=== PATIENT | male | born 1965 | race Caucasian/White ===

== ENCOUNTER 2021-03-27 15:26 | Inpatient (IN) | payer OTHER ==
[2021-03-27 18:06] VITALS: BMI 25.0
[2021-03-27] MEDS ORDERED: MAG HYDROX/AL HYDROX/SIMETH 30 ML UNIT-DOSE CUP PO PRN (19:40)
[2021-03-27] MEDS ORDERED: ONDANSETRON *ODT* 4 MG TABLET SL PRN (19:40)
[2021-03-27] MEDS ORDERED: diazePAM 5 MG TABLET PO ONE (19:40)
[2021-03-27] MEDS ORDERED: MAGNESIUM HYDROX 2400MG/30ML ORAL SUSPENSION 30 ML CUP PO PRN (19:40)
[2021-03-27] MEDS ORDERED: BISMUTH SUBSALICYLATE 524 MG/30 ML PO PRN (19:40)
[2021-03-27] MEDS ORDERED: ACETAMINOPHEN 325 MG TABLET (FP) PO PRN ×2 (19:40)
[2021-03-27] MEDS ORDERED: MAGNESIUM CITRATE 300 ML BOTTLE PO PRN (19:40)
[2021-03-27] MEDS ORDERED: MENTHOL/PHENOL 1 EACH UD MM PRN (19:40)
[2021-03-27] MEDS ORDERED: NICOTINE POLACRILEX 2 MG GUM BUC PRN (19:40)
[2021-03-27] MEDS ORDERED: MELATONIN 5 MG TABLETS PO SCH (22:00)
[2021-03-27] MEDS: diazePAM 5 MG TABLET PO SCH (22:01)
[2021-03-27] MEDS: hydrOXYzine PAMOATE 25 MG CAPSULE (FP) PO SCH (22:01)
[2021-03-27] MEDS: THIAMINE HCL 100 MG TABLET (FP) PO SCH (22:01)
[2021-03-27] MEDS: METHOCARBAMOL 500 MG TABLET PO PRN (22:01)
[2021-03-27] MEDS: PRENATAL VITAMINS W/ FOLIC ACID TABLET (FP) PO SCH (22:02)
[2021-03-27] MEDS: NICOTINE 21 MG/24 HOURS TOPICAL PATCH TD SCH (22:04)
[2021-03-28] MEDS: hydrOXYzine PAMOATE 25 MG CAPSULE (FP) PO SCH ×3 (05:30→14:45)
[2021-03-28] MEDS: diazePAM 5 MG TABLET PO SCH ×4 (05:31→22:12)
[2021-03-28] MEDS: PRENATAL VITAMINS W/ FOLIC ACID TABLET (FP) PO SCH (10:35)
[2021-03-28] MEDS: diazePAM 5 MG TABLET PO ONE (10:36)
[2021-03-28] MEDS: NICOTINE 21 MG/24 HOURS TOPICAL PATCH TD SCH (10:47)
[2021-03-28 11:08] LABS: HEMATOCRIT 41.8 % (35.4-49); HEMOGLOBIN 14.1 GM/dL (11.7-16.9); MCH 35.6 pg (25.7-33.7); MCHC 33.7 g/dl (32.0-35.9); MEAN CELL VOLUME 105.6 fl (80-96); MEAN PLT VOLUME 9.5 fl (7.5-11.1); PLATELET COUNT 160 10^3/uL (134-434); RBC 3.96 M/mm3 (4.00-5.60); RDW 14.4 % (11.9-15.9); WHITE BLOOD COUNT 4.9 K/mm3 (4.0-10.0)
[2021-03-28 11:17] LABS: ALBUMIN 3.1 g/dl (3.4-5.0)
[2021-03-28 11:18] LABS: BLOOD UREA NITROGEN 8.5 mg/dL (7-18); CALCIUM 8.6 mg/dL (8.5-10.1)
[2021-03-28 11:21] LABS: CREATININE 0.7 mg/dL (0.55-1.3)
[2021-03-28 11:22] LABS: TOT PROT 6.2 g/dl (6.4-8.2)
[2021-03-28] MEDS: hydrOXYzine PAMOATE 25 MG CAPSULE (FP) PO PRN (17:36)
[2021-03-28] MEDS: THIAMINE HCL 100 MG TABLET (FP) PO SCH (22:12)
[2021-03-28] MEDS: SUVOREXANT 5 MG TABLET PO PRN (22:13)
[2021-03-29] MEDS: diazePAM 5 MG TABLET PO SCH ×3 (05:31→22:16)
[2021-03-29] MEDS: hydrOXYzine PAMOATE 25 MG CAPSULE (FP) PO PRN (10:43)
[2021-03-29] MEDS: NICOTINE 21 MG/24 HOURS TOPICAL PATCH TD SCH (10:43)
[2021-03-29] MEDS: PRENATAL VITAMINS W/ FOLIC ACID TABLET (FP) PO SCH (10:43)
[2021-03-29] MEDS: diazePAM 5 MG TABLET PO PRN (10:46)
[2021-03-29 11:25] LABS: CALCIUM 8.3 mg/dL (8.5-10.1)
[2021-03-29 11:26] LABS: ALBUMIN 2.8 g/dl (3.4-5.0); BLOOD UREA NITROGEN 8.9 mg/dL (7-18)
[2021-03-29 11:29] LABS: CREATININE 0.6 mg/dL (0.55-1.3)
[2021-03-29 11:31] LABS: BILIRUBIN,TOTAL 1.6 mg/dL (0.2-1); TOT PROT 5.8 g/dl (6.4-8.2)
[2021-03-29] MEDS: THIAMINE HCL 100 MG TABLET (FP) PO SCH (22:16)
[2021-03-29] MEDS: SUVOREXANT 5 MG TABLET PO PRN (22:17)
[2021-03-30] MEDS: diazePAM 5 MG TABLET PO SCH ×2 (05:52→17:41)
[2021-03-30] MEDS: NICOTINE 21 MG/24 HOURS TOPICAL PATCH TD SCH (10:20)
[2021-03-30] MEDS: PRENATAL VITAMINS W/ FOLIC ACID TABLET (FP) PO SCH (10:20)
[2021-03-30] MEDS: METHOCARBAMOL 500 MG TABLET PO PRN (10:21)
[2021-03-30] MEDS: diazePAM 5 MG TABLET PO PRN (10:21)
[2021-03-30] MEDS: THIAMINE HCL 100 MG TABLET (FP) PO SCH (22:13)
[2021-03-30] MEDS: SUVOREXANT 5 MG TABLET PO PRN (22:13)
[2021-03-30] MEDS: hydrOXYzine PAMOATE 25 MG CAPSULE (FP) PO PRN (22:14)
[2021-03-31] MEDS: diazePAM 5 MG TABLET PO ONE (05:32)
[2021-03-31] MEDS: NICOTINE 21 MG/24 HOURS TOPICAL PATCH TD SCH (10:37)
[2021-03-31] MEDS: PRENATAL VITAMINS W/ FOLIC ACID TABLET (FP) PO SCH (10:37)
[2021-03-31] MEDS: hydrOXYzine PAMOATE 25 MG CAPSULE (FP) PO PRN (10:38)
[2021-03-31] MEDS ORDERED: diazePAM 5 MG TABLET PO PRN (10:38)
[2021-03-31] MEDS: METHOCARBAMOL 500 MG TABLET PO PRN (10:38)
[2021-03-31] MEDS: diazePAM 5 MG TABLET PO SCH (22:13)
[2021-03-31] MEDS: THIAMINE HCL 100 MG TABLET (FP) PO SCH (22:13)
[2021-04-01] MEDS: diazePAM 5 MG TABLET PO SCH ×2 (10:19→22:12)
[2021-04-01] MEDS: NICOTINE 21 MG/24 HOURS TOPICAL PATCH TD SCH (10:20)
[2021-04-01] MEDS: PRENATAL VITAMINS W/ FOLIC ACID TABLET (FP) PO SCH (10:20)
[2021-04-01] MEDS: THIAMINE HCL 100 MG TABLET (FP) PO SCH (22:12)
[2021-04-01] MEDS: hydrOXYzine PAMOATE 25 MG CAPSULE (FP) PO PRN (22:12)
[2021-04-02] MEDS ORDERED: diazePAM 5 MG TABLET PO ONE (05:00)
[2021-04-02 06:27] VITALS: BP 116/75; PULSE 71; TEMP 96.6
== END 2021-04-02 10:03 | disposition home or self-care (01) | DRG 775 ==
LOC: YASAS 15:26 → Y3N 20:41
PROVIDERS: ADMIT Allergy & Immunology; ATTEND Allergy & Immunology
PROC: HZ2ZZZZ Detoxification Services for Substance Abuse Treatment (ICD-10-PCS; principal; 2021-03-27)
DX: F10.230 Alcohol dependence with withdrawal, uncomplicated (principal); F17.210 Nicotine dependence, cigarettes, uncomplicated; G47.00 Insomnia, unspecified; J44.9 Chronic obstructive pulmonary disease, unspecified; Z87.11 Personal history of peptic ulcer disease
CPT/HCPCS: 36415; 71046-TC-FY; 80053; 85027; 86780; C9803; U0003; U0005